=== PATIENT | female | born 2000 | race Caucasian/White ===

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

== ENCOUNTER 2018-08-29 10:53 | Emergency (ER) | payer BC, OTHER ==
[~2018-08-29] VITALS: Ht 167.6 cm; Wt 89.2 kg
--- OUTSIDE RECORDS SUMMARY | ~2018-08-29 | XMS | Clinical Summary ---
Demographics + + + | Address | [address] | | | [place] [address] | + + + | Home Phone | | + + + | Preferred Language | Unknown | + + + | Marital Status | Single | + + + | Confucianism Affiliation | 1041 | + + + | Race | Unknown | + + + | Ethnic Group | Unknown | + + + Author + + + | Author | [facility] | + + + | Organization | [facility] | + + + | Address | Unknown | + + + | Phone | Unavailable | + + + Support + + + + + | Name | Relationship | Address | Phone | + + + + + | Donald Lobo | LILI | [address] | | | | | [place] [address] | | + + + + + Care Team Providers + +------+ + | Care Corporate Risk Analyst Name | Role | Phone | + +------+ + | Lu Crum MD | PP | | + +------+ + Allergies + + + + + + | Active Allergy | Reactions | Severity | Noted | Comments | | | | | Date | | + + + + + + | Amoxicillin | Hives | High | 06/22/19 | | | | | | 14 | | + + + + + + Current Medications + + +--------+---------+------+------+-------+ | Prescription | Sig. | Disp. | Refills | Star | End | Statu | | | | | | t | Date | s | | | | | | Date | | | + + +--------+---------+------+------+-------+ | ibuprofen (MOTRIN) | | | | 02/0 | | Activ | | 600 MG tablet | | | | 09/15 | | e | | | | | | 17 | | | + + +--------+---------+------+------+-------+ | Vit-Fe | Take 1 tablet by | 30 | 0 | 06/2 | | Activ | | Fumarate-FA | mouth daily. | tablet | | 20 | | e | | ( PLUS | | | | 17 | | | | VITAMIN) 27-1 MG | | | | | | | | tablet | | | | | | | + + +--------+---------+------+------+-------+ Active Problems No known active problems Social History + +-------+ +--------+------+ | Tobacco Use | Types | Packs/Day | Years | Date | | | | | Used | | + +-------+ +--------+------+ | Never Smoker | | | | | + +-------+ +--------+------+ + +---+---+---+ | Smokeless Tobacco: | | | | | Never Used | | | | + +---+---+---+ + + +---------+ + | Alcohol Use | Drinks/We | oz/Week | Comments | | | ek | | | + + +---------+ + | No | | | | + + +---------+ + + + + | Sex Assigned at | Date Recorded | | | | + + + | Not on file | | + + + Last Filed Vital Signs + + + + | Vital Sign | Reading | Time Taken | + + + + | Blood Pressure | 130/61 | 11/21/2016 11:54 AM PDT | + + + + | Pulse | 65 | 11/21/2016 11:54 AM PDT | + + + + | Temperature | 36.8 C (98.3 F) | 11/21/2016 11:54 AM PDT | + + + + | Respiratory Rate | 16 | 11/21/2016 11:54 AM PDT | + + + + | Oxygen Saturation | 98% | 11/21/2016 11:54 AM PDT | + + + + | Inhaled Oxygen | - | - | | Concentration | | | + + + + | Weight | 95.3 kg (210 lb 1.6 | 11/21/2016 10:22 AM PDT | | | oz) | | + + + + | Height | 167.6 cm (5' 6") | 07/03/2016 1:12 PM PST | + + + + | Body Mass Index | 33.91 | 11/21/2016 10:22 AM PDT | + + + + Plan of Treatment + + + + + | Health Maintenance | Due Date | Last Done | Comments | + + + + + | Well Child Check | | | | | | 1 | | | + + + + + | Vaccine: HPV (1 - | | | | | Female 3-dose | 3 | | | | series) | | | | + + + + + | Vaccine: | | | | | Dtap/Tdap/Td (1 - | 7 | | | | Tdap) | | | | + + + + + | Vaccine: Influenza | | | | | (#1) | 8 | | | + + + + + Results Not on filefrom Last 3 Months Insurance + +--------+ +------+-------+ + | Payer | Benefi | Subscriber | Type | Phone | Address | | | t Plan | ID | | | | | | / | | | | | | | Group | | | | | + +--------+ +------+-------+ + | PREMERA | PREMER | [id number] | | | [address] [address] | | | A BLUE | 5 | | | [place] | | | CARD | | | | [phone] | + +--------+ +------+-------+ + | MEDICAID | MEDICA | [id number] | | | [address] | | | ID | | | | [place] | | | [place] | | | | [phone] | + +--------+ +------+-------+ + + +--------+ +--------+ + + | Guarantor Name | Accoun | Relation to | Date | Phone | Billing Address | | | t Type | Patient | of | | | | | | | | | | + +--------+ +--------+ + + | LINDSAY LOBO L | Person | Self | [birth year] | Home: | [address] | | | [place] | | 1999 | [phone] | [place] | | | [place] | | | [phone] | [phone] | + +--------+ +--------+ + +
--- OUTSIDE RECORDS SUMMARY | ~2018-08-29 | XMS | Clinical Summary ---
Demographics + + + | Address | [address] | | | [place] [address] | + + + | Home Phone | | + + + | Preferred Language | Unknown | + + + | Marital Status | Single | + + + | Mormonism Affiliation | 1041 | + + + | Race | Unknown | + + + | Ethnic Group | Unknown | + + + Author + + + | Author | [facility] | + + + | Organization | [facility] | + + + | Address | Unknown | + + + | Phone | Unavailable | + + + Support + + + + + | Name | Relationship | Address | Phone | + + + + + | Donald Lobo | LILI | [address] | | | | | [place] [address] | | + + + + + Care Team Providers + +------+ + | Care Marketing Project Manager Name | Role | Phone | [...] +------+-------+ + | PREMERA | PREMER | [id number] | | | [address] [address] | | | A BLUE | 5 | | | [place] | | | CARD | | | | [address] | + +--------+ +------+-------+ + | MEDICAID | MEDICA | [id number] | | | [address] | | | ID | | | | [place] | | | [place] | | | | [address] | + +--------+ +------+-------+ + + +--------+ [...] | | rhina/Alin | | 1999 | [phone] | [place] | | | [place] | | | [phone] | [address] | + +--------+ +--------+ + +
[~2018-08-29 10:53] MED LIST: NORCO 5-325 TA1 EACH PO; TRI-LO-ESTARYL1 EACH PO
[2018-08-29] MEDS ORDERED: ONDANSETRON ODT8 MG PO (11:18)
[2018-08-29] MEDS ORDERED: PROMETHAZINE HC25 M1 PO (13:01)
== END 2018-08-29 13:13 | disposition home or self-care (01) ==
LOC: ED 10:53
DX: R19.7 Diarrhea, unspecified (principal); R11.2 Nausea with vomiting, unspecified; G43.909 Migraine, unspecified, not intractable, without status migrainosus; Z88.5 Allergy status to narcotic agent; Z88.0 Allergy status to penicillin; Z79.899 Other long term (current) drug therapy
CPT/HCPCS: 81001; 99284

== ENCOUNTER 2019-10-15 19:37 | Emergency (ER) | payer BC, OTHER ==
[~2019-10-15] VITALS: Ht 167.6 cm; Wt 90.7 kg
--- OUTSIDE RECORDS SUMMARY | ~2019-10-15 | XMS | Encounter Summary ---
Demographics + + + | Address | [address] | | | [place] [address] | + + + | Home Phone | | + + + | Preferred Language | Unknown | + + + | Marital Status | Single | + + + | Shinto Affiliation | 1041 | + + + | Race | Unknown | + + + | Ethnic Group | Unknown | + + + Author + + + | Author | [facility] | | | and [place] | + + + | Organization | [facility] | | | and [place] | + + + | Address | Unknown | + + + | Phone | Unavailable | + + + Support + + +---------+ + | Name | Relationship | Address | Phone | + + +---------+ + | oDnald Lobo | ECON | Unknown | | + + +---------+ + Care Team Providers + +------+ + | Care Pulverizer Name | Role | Phone | + +------+ + PCP | Unavailable | + +------+ + Encounter Details +--------+ + + + + | Date | Type | Department | Care Team | Description | +--------+ + + + + | 06/22/ | Emergency | [facility] | John Paul Rooney | Vaginal foreign body | | 2013 | | [facility]ICAL [facility]ENTER | MD [place]any [address] | | | | | EMERGENCY [place]OVELY | [place], [place] | | | | | [address] | [address] | | | | | [place] | | | | | | [address] | | | | | | [phone] | | | +--------+ + + + + Social History + +-------+ +--------+------+ | Tobacco Use | Types | Packs/Day | Years | Date | | | | | Used | | + +-------+ +--------+------+ | Never Assessed | | | | | + +-------+ +--------+------+ + + + | Sex Assigned at | Date Recorded | | | | + + + | Not on file | | + + + + + + + | Job Start Date | Occupation | Industry | + + + + | Not on file | Not on file | Not on file | + + + + + + + + | Travel History | Travel Start | Travel End | + + + + + + | No recent travel history available. | + + documented as of this encounter Plan of Treatment Not on filedocumented as of this encounter Visit Diagnoses + + | Diagnosis | + + | Vaginal foreign body Foreign body in vulva and vagina | + + documented in this encounter"
--- OUTSIDE RECORDS SUMMARY | ~2019-10-15 | XMS | Clinical Summary ---
Demographics + + + | Address | [address] | | | [place] [address] | + + + | Home Phone | | + + + | Preferred Language | Unknown | + + + | Marital Status | Single | + + + | Jainism Affiliation | 1041 | + + + | Race | Unknown | + + + | Ethnic Group | Unknown | + + + Author + + + | Author | [facility] (Historical as of | | | 01-12-19) | + + + | Organization | [facility] (Historical as of | | | 01-12-19) | + + + | Address | Unknown | + + + | Phone | Unavailable | + + + Support + + + + + | Name | Relationship | Address | Phone | + + + + + | Donald Lobo | LILI | [address] | | | | | [place] [address] | | + + + + + Care Team Providers + +------+ + | Care Utility Tractor Operator Name | Role | Phone | + [...] 600 MG tablet | | | | /20 | | e | | | | | | 17 | | | + + +--------+---------+------+------+-------+ | Vit-Fe | Take 1 tablet by | 30 | 0 | 06/2 | | Activ | | Fumarate-FA | mouth daily. | tablet | | 6/20 | | e | | ( PLUS [...] | + + + + + | Cervical Cancer | | | | | Screening (Pap) | 9 | | | + + + + + | Vaccine: Influenza | | | | | (Season Ended) | 0 | | | + + + + [...] +------+-------+ + | PREMERA | PREMER | [id number] | | | [address] [address] | | | A BLUE | 5 | | | [place], [place] | | | CARD | | | | [address] | + +--------+ +------+-------+ + | MEDICAID | MEDICA | [id number] | | | [address] | | | ID | | | | [place] | | | [place] | | | | [address] | + +--------+ +------+-------+ + + +--------+ +--------+ + + | Guarantor Name | Accoun | Relation to | Date | Phone | Billing Address | | | t Type | Patient | of | | | | | | | | | | + +--------+ +--------+ + + | LINDSAY LOBO | Person | Self | [birth year] | Home: | [address] | | | al/Fam | | 1999 | [phone] | [place] | | | [place] | | | 1886 | [address] | + +--------+ +--------+ + +
--- OUTSIDE RECORDS SUMMARY | ~2019-10-15 | XMS | Encounter Summary ---
Demographics + + + | Address | [address] | | | [place] [address] | + + + | Home Phone | | + + + | Preferred Language | Unknown | + + + | Marital Status | Single | + + + | Yazidism Affiliation | 1041 | + + + | Race | Unknown | + + + | Ethnic Group | Unknown | + + + Author + + + | Author | [facility] | | | and [place] | + + + | Organization | [facility] | | | and [place] | + + + | Address | Unknown | + + + | Phone | Unavailable | + + + Support + + +---------+ + | Name | Relationship | Address | Phone | + + +---------+ + | Donald Lobo | ECON | Unknown | | + + +---------+ + Care Team Providers + +------+ + | Care Correspondence Clerk Name | Role | Phone | + +------+ + PCP | Unavailable | + +------+ + Encounter Details +--------+ + + + + | Date | Type | Department | Care Team | Description | +--------+ + + + + | 06/22/ | Emergency | [facility] | John Paul Rooney | Vaginal foreign body | | 2013 | | MEDICAL CENTER | MD [address] | | | | | EMERGENCY LOVELY | [place], [place] | | | | | [address] | [address] | | | | | [place] | | | | | | [address] | | | | | | [phone] | | | +--------+ + + + [...]
--- OUTSIDE RECORDS SUMMARY | ~2019-10-15 | XMS | Encounter Summary ---
Demographics + + + | Address | [address] | | | [place] [address] | + + + | Home Phone | | + + + | Preferred Language | Unknown | + + + | Marital Status | Single | + + + | Muslim Affiliation | 1041 | + + + | Race | Unknown | + + + | Ethnic Group | Unknown | + + + Author + + + | Author | [facility] | | | and [place] | + + + | Organization | [facility] | | | and [...] Team Providers + +------+ + | Care Traveling Construction Superintendent Name | Role | Phone | + +------+ + PCP | Unavailable | + +------+ + Encounter Details +--------+ + + + + | Date | Type | Department | Care Team | Description | +--------+ + + + + | 07/03/ | Emergency | [facility] | Meet Posada, | Dysuria; in | | 2017 | | [facility] | PA-C [address] | first trimester | | | | EMERGENCY LOVELY | Emergency | | | | | [address] | Department | | | | | [place], [place] | [place] [address] | | | | | [address] | [phone] | | | | | [phone] | | | +--------+ + + + [...] + + documented as of this encounter Last Filed Vital Signs + + + + + | Vital Sign | Reading | Time Taken | Comments | + + + + + | Blood Pressure | 125/60 | 07/03/2016 2:40 PM | | | | | PST | | + + + + + | Pulse | 77 | 07/03/2016 2:40 PM | | | | | PST | | + + + + + | Temperature | 37.1 C (98.7 F) | 07/03/2016 2:40 PM | | | | | PST | | + + + + + | Respiratory Rate | 16 | 07/03/2016 2:40 PM | | | | | PST | | + + + + + | Oxygen Saturation | - | - | | + + + + + | Inhaled Oxygen | - | - | | | Concentration | | | | + + + + + | Weight | 97.4 kg (214 lb 11.7 | 07/03/2016 2:40 PM | | | | oz) | PST | | + + + + + | Height | 167.6 cm (5' 6") | 07/03/2016 2:40 PM | | | | | PST | | + + + + + | Body Mass Index | 34.66 | 07/03/2016 2:40 PM | | | | | PST | | + + + + + documented in this encounter Medications at Time of Discharge + +-----+ +---------+ + + | Medication | Sig | Dispensed | Refills | Start | End Date | | | | | | Date | | + +-----+ +---------+ + + | ibuprofen | | | 0 | 07/02/19 | | | (NADER AVINA) 600 | | | | 17 | | | MG tablet | | | | | | + +-----+ +---------+ + + documented as of this encounter Plan of Treatment Not on filedocumented as of this encounter Procedures + +--------+ + + + | Procedure Name | Priori | Date/Time | Associated Diagnosis | Comments | | | ty | | | | + +--------+ + + + | URINALYSIS, REFLEX | Routin | 07/03/2016 | | Results for this | | MICROSCOPIC AND/OR | e | 1:51 PM | | procedure are in the | | CULTURE | | PST | | results section. | + +--------+ + + + | URINALYSIS, | Routin | 07/03/2016 | | Results for this | | MICROSCOPIC ONLY | e | 1:51 PM | | procedure are in the | | | | PST | | results section. | + +--------+ + + + documented in this encounter Results Urinalysis, Reflex Microscopic and/or Culture (07/03/2016 1:51 PM PST) + + + + + + | Component | Value | Ref Range | Performed | Pathologist | | | | | At | Signature | + + + + + + | Color | YELLOWComment: Testing | | EXTERNAL | | | | performed at [facility], [address] | | [address] | | | | [address], | | | | | | [place] [address] | | | | + + + + + + | Clarity | HAZYComment: Testing | | EXTERNAL | | | | performed at [facility], [address] | | [address] | | | | [address] [place], | | | | | | [place] [address] | | | | + + + + + + | Specific | 1.010Comment: Testing | 1.001 - 1.035 | EXTERNAL | | | Centre, | performed at [facility], [address] | | LAB | | | Urine | [address], | | | | | | [place] [address] | | | | + + + + + + | Leukocyte | NEGATIVEComment: Testing | | EXTERNAL | | | Esterase, | performed at [facility], [address] | | LAB | | | Urine | [address], | | | | | | [place] [address] | | | | + + + + + + | Nitrite, | NEGATIVEComment: Testing | | EXTERNAL | | | Urine | performed at [facility], [address] | | LAB | | | | [address], | | | | | | [place] [address] | | | | + + + + + + | Urobilinoge | 0.2Comment: Testing | mg/dL | EXTERNAL | | | n, Urine | performed at [facility], [address] | | LAB | | | | [address], | | | | | | [place] [address] | | | | + + + + + + | Protein, | NEGATIVEComment: Testing | mg/dL | EXTERNAL | | | Urine | performed at [facility], [address] | | LAB | | | | [address] [place], | | | | | | [place] [address] | | | | + + + + + + | pH, Urine | 6.5Comment: Testing | 4.6 - 8.0 | EXTERNAL | | | | performed at [facility], [address] | | LAB | | | | [address], | | | | | | [place] [address] | | | | + + + + + + | Blood, | LARGE (A)Comment: | | EXTERNAL | | | Urine | Testing performed at | | LAB | | | | [facility], [address], | | | | | | [place] [address] | | | | + + + + + + | Ketones | NEGATIVEComment: Testing | mg/dL | EXTERNAL | | | | performed at [facility], [address] | | LAB | | | | [address], | | | | | | [place] [address] | | | | + + + + + + | Bilirubin, | NEGATIVEComment: Testing | | EXTERNAL | | | Urine | performed at [facility], [address] | | LAB | | | | [address], | | | | | | [place] [address] | | | | + + + + + + | Glucose, | NEGATIVEComment: Testing | mg/dL | EXTERNAL | | | Urine | performed at [facility], [address] | | LAB | | | | [address] [place], | | | | | | [place] [address] | | | | + + + + + + + + | Specimen | + + | Urine specimen | | (specimen) | + + + +---------+ + + | Performing | Address | City/State/Zipcode | Phone Number | | Organization | | | | + +---------+ + + | EXTERNAL LAB | | | | + +---------+ + + Urinalysis, Microscopic Only (07/03/2016 1:51 PM PST) + + + + + + | Component | Value | Ref Range | Performed | Pathologist | | | | | At | Signature | + + + + + + | WBC, UA | 1-5Comment: Testing | 0 - 5 /hpf | EXTERNAL | | | | performed at [facility], [address] | | LAB | | | | [address] [place], | | | | | | [place] [address] | | | | + + + + + + | RBC, UA | 0-2Comment: Testing | 0 - 5 /hpf | EXTERNAL | | | | performed at [facility], [address] | | LAB | | | | [address], | | | | | | [place] [address] | | | | + + + + + + | Epithelial | 26-50Comment: Testing | /lpf | EXTERNAL | | | Cells | performed at [facility], [address] | | LAB | | | | [address], | | | | | | [place] [address] | | | | + + + + + + | Bacteria, | TRACE (A)Comment: | | EXTERNAL | | | UA | Testing performed at | | LAB | | | | [facility], [address], | | | | | | [place] [address] | | | | + + + + + + + + | Specimen | + + | | + + + +---------+ + + | Performing | Address | City/State/Zipcode | Phone Number | | Organization | | | | + +---------+ + + | EXTERNAL LAB | | | | + +---------+ + + documented in this encounter Visit Diagnoses + + | Diagnosis | + + | Dysuria | + + | in first trimester Unspecified type of , unspecified as to | | completion or legality, without mention of complication | + + documented in this encounter
--- OUTSIDE RECORDS SUMMARY | ~2019-10-15 | XMS | Clinical Summary ---
Demographics + + + | Address | [address] | | | [place] [address] | + + + | Home Phone | | + + + | Preferred Language | Unknown | + + + | Marital Status | Single | + + + | Restorationist Affiliation | 1041 | + + + | Race | Unknown | + + + | Ethnic Group | Unknown | + + + Author + + + | Author | [facility] (Historical as of | | | 01-12-19) | + + + | Organization | [facility] (Historical as of | | | 01-12-19) | + + + | Address | Unknown | + + + | Phone | Unavailable | + + + Support + + + + + | Name | Relationship | Address | Phone | + + + + + | Donlad Lobo | LILI | [address] | | | | | [place] [address] | | + + + + + Care Team Providers + +------+ + | Care Senior Java Data Architect Name | Role | Phone | + [...] +------+-------+ + | PREMERA | PREMER | [id number] | | | [address] [address] | | | A BLUE | 5 | | | [place], [place] | | | CARD | | | | [address] | + +--------+ +------+-------+ + | MEDICAID | MEDICA | [id number] | | | [address] | | | ID | | | | [place] | | | [place] | | | | [address] | + +--------+ +------+-------+ + + +--------+ [...] | | al/Fam | | 1999 | [phone] | [place] | | | [place] | | | 1886 | [address] | + +--------+ +--------+ + +
--- OUTSIDE RECORDS SUMMARY | ~2019-10-15 | XMS | Encounter Summary ---
Demographics + + + | Address | [address] | | | [place] [address] | + + + | Home Phone | | + + + | Preferred Language | Unknown | + + + | Marital Status | Single | + + + | Congregation Affiliation | 1041 | + + + | Race | Unknown | + + + | Ethnic Group | Unknown | + + + Author + + + | Author | [facility] | | | and [place] | + + + | Organization | [facility] | | | [...] Team Providers + +------+ + | Care Social Worker Clinical Name | Role | Phone | + +------+ + | Lu Crum MD | PCP | | + +------+ + Encounter Details +--------+ + + + + | Date | Type | Department | Care Team | Description | +--------+ + + + + | 11/21/ | Orders Only | [facility] | Dar Recinos | | | 2017 | | [address] | [address] | | | | | [address] | [address] | | | | | [place], [place] | [place], [place] | | | | | [address] | [address] | | | | | [phone] | [phone] | | | | | | | | +--------+ + + + [...] filedocumented as of this encounter Visit Diagnoses Not on filedocumented in this encounter"
--- OUTSIDE RECORDS SUMMARY | ~2019-10-15 | XMS | Encounter Summary ---
Demographics + + + | Address | [address] | | | [place] [address] | + + + | Home Phone | | + + + | Preferred Language | Unknown | + + + | Marital Status | Single | + + + | Orthodoxy Affiliation | 1041 | + + + | Race | Unknown | + + + | Ethnic Group | Unknown | + + + Author + + + | Author | [facility] | | | and [place] | + + + | Organization | [facility] | | | [...] Team Providers + +------+ + | Care Adjunct Faculty For Medical Terminology Name | Role | Phone | + +------+ + PCP | Unavailable | + +------+ + Encounter Details +--------+ + + + + | Date | Type | Department | Care Team | Description | +--------+ + + + + | 11/21/ | Emergency | [facility] | Dar Recinos | Pelvic pain in | | 2017 | | [facility] | [address] | | | | | EMERGENCY [place] | [address] | | | | | [address] | [place] | | | | | [place] | [address] | | | | | [address] | [phone] | | | | | [phone] | | | +--------+ + + + [...] Pressure | 130/61 | 11/21/2016 11:54 AM | | | | | PDT | | + + + + + | Pulse | 65 | 11/21/2016 11:54 AM | | | | | PDT | | + + + + + | Temperature | 36.8 C (98.3 F) | 11/21/2016 11:54 AM | | | | | PDT | | + + + + + | Respiratory Rate | 16 | 11/21/2016 11:54 AM | | | | | PDT | | + + + + + | Oxygen Saturation | - | - | | + + + + + | Inhaled Oxygen | - | - | | | Concentration | | | | + + + + + | Weight | 95.3 kg (210 lb 1.6 | 11/21/2016 11:54 AM | | | | oz) | PDT | | + + + + + | Height | - | - | | + + + + + | Body Mass Index | 33.91 | 07/03/2016 2:40 PM | | | | | PST | | + + + + + documented in this encounter Medications at Time of Discharge + + + +---------+ + + | Medication | Sig | Dispensed | Refills | Start | End Date | | | | | | Date | | + + + +---------+ + + | ibuprofen | | | 0 | 07/02/19 | | | (NADER AVINA) 600 | | | | 17 | | | MG tablet | | | | | | + + + +---------+ + + | vitamin | Take 1 tablet by | 30 | 0 | 11/22/19 | | | w/ferrous | mouth daily. | tablet | | 17 | | | fumarate-folic acid | | | | | | | ( PLUS) 27-1 | | | | | | | mg tablet | | | | | | + + + +---------+ + + documented as of this encounter Plan of Treatment Not on filedocumented as of this encounter Procedures + +--------+ + + + | Procedure Name | Priori | Date/Time | Associated Diagnosis | Comments | | | ty | | | | + +--------+ + + + | HCG, SERUM, QUANT | Routin | 11/21/2016 | | Results for this | | | e | 10:37 AM | | procedure are in the | | | | PDT | | results section. | + +--------+ + + + | URINALYSIS, REFLEX | Routin | 11/21/2016 | | Results for this | | MICROSCOPIC AND/OR | e | 10:36 AM | | procedure are in the | | CULTURE | | PDT | | results section. | + +--------+ + + + | URINALYSIS, | Routin | 11/21/2016 | | Results for this | | MICROSCOPIC ONLY | e | 10:36 AM | | procedure are in the | | | | PDT | | results section. | + +--------+ + + + documented in this encounter Results HCG, Serum, Quant (11/21/2016 10:37 AM PDT) + + + + + + | Component | Value | Ref Range | Performed | Pathologist | | | | | At | Signature | + + + + + + | hCG Quant, | 1,260 (H)Comment: | mIU/mL | EXTERNAL | | | Serum | APPROX GESTATIONAL | | LAB | | | | AGE..APPROX HCG RANGE | | | | | | 0.2 - 1 WEEK . . . . . 5 | | | | | | - 501 - 2 WEEKS . . . . | | | | | | . 50 - 5002 - 3 WEEKS . | | | | | | . . . 100 - 94952 - 4 | | | | | | WEEKS . . . . 500 - | | | | | | 544786 - 5 WEEKS . . . . | | | | | | 1000 - 770648 - 6 WEEKS | | | | | | . . . 50567 - 1557286 | | | | | | - 8 WEEKS . . . 91490 | | | | | | - [id number] - 3 MONTHS . | | | | | | . . 95621 - 239410 | | | | | | Testing performed at | | | | | | [facility], [address], | | | | | | [place] [address] | | | | + + + + + + + + | Specimen | + + | Blood specimen | | (specimen) | + + + +---------+ + + | Performing | Address | City/State/Zipcode | Phone Number | | Organization | | | | + +---------+ + + | EXTERNAL LAB | | | | + +---------+ + + Urinalysis, Reflex Microscopic and/or Culture (11/21/2016 10:36 AM PDT) + + + + + + | Component | Value | Ref Range | Performed | Pathologist | | | | | At | Signature | + + + + + + | Color | YELLOW | | EXTERNAL | | | | | | LAB | | + + + + + + | Clarity | CLEAR | | EXTERNAL | | | | | | LAB | | + + + + + + | Specific | 1.015 | 1.001 - 1.035 | EXTERNAL | | | [place], | | | LAB | | | Urine | | | | | + + + + + + | Leukocyte | NEGATIVE | | EXTERNAL | | | Esterase, | | | LAB | | | Urine | | | | | + + + + + + | Nitrite, | NEGATIVE | | EXTERNAL | | | Urine | | | LAB | | + + + + + + | Urobilinoge | 0.2 | mg/dL | EXTERNAL | | | n, Urine | | | LAB | | + + + + + + | Protein, | NEGATIVE | mg/dL | EXTERNAL | | | Urine | | | LAB | | + + + + + + | pH, Urine | 6.0 | 4.6 - 8.0 | EXTERNAL | | | | | | LAB | | + + + + + + | Blood, | TRACE (A) | | EXTERNAL | | | Urine | | | LAB | | + + + + + + | Ketones | NEGATIVE | mg/dL | EXTERNAL | | | | | | LAB | | + + + + + + | Bilirubin, | NEGATIVE | | EXTERNAL | | | Urine | | | LAB | | + + + + + + | Glucose, | NEGATIVEComment: Testing | mg/dL | EXTERNAL | | | Urine | performed at [facility], [address] | | LAB | | | | [address], | | | | | | [place] [address] | | | | + + + [...] + +---------+ + + Urinalysis, Microscopic Only (11/21/2016 10:36 AM PDT) + + + + + + | Component | Value | Ref Range | Performed | Pathologist | | | | | At | Signature | + + + + + + | WBC, UA | 0-2 | 0 - 5 /hpf | EXTERNAL | | | | | | LAB | | + + + + + + | RBC, UA | 0-2 | 0 - 5 /hpf | EXTERNAL | | | | | | LAB | | + + + + + + | Epithelial | 1-5 | /lpf | EXTERNAL | | | Cells | | | LAB | | + + + + + + | Bacteria, | NONE SEENComment: | | EXTERNAL | | | UA | Testing performed at | | LAB | | | | [facility], [address], | | | | | | [place] [address] | | | | + + + [...] + | Diagnosis | + + | Pelvic pain in Other specified complication of , unspecified as to | | episode of care | + + documented in this encounter"
--- OUTSIDE RECORDS SUMMARY | ~2019-10-15 | XMS | Encounter Summary ---
Demographics + + + | Address | [address] | | | [place] [address] | + + + | Home Phone | | + + + | Preferred Language | Unknown | + + + | Marital Status | Single | + + + | Orthodox Affiliation | 1041 | + + + | Race | Unknown | + + + | Ethnic Group | Unknown | + + + Author + + + | Author | [facility] | | | and [place] | + + + | Organization | [facility] | | | [...] Team Providers + +------+ + | Care Dispatcher Tow Truck Name | Role | Phone | + [...] [address] | | | | | [place], [place] | [place], [place] | | | | | [address] | [address] | | | | | [phone] | [phone] | | | | | | | [...]
--- OUTSIDE RECORDS SUMMARY | ~2019-10-15 | XMS | Encounter Summary ---
Demographics + + + | Address | [address] | | | [place] [address] | + + + | Home Phone | | + + + | Preferred Language | Unknown | + + + | Marital Status | Single | + + + | Scientologist Affiliation | 1041 | + + + | Race | Unknown | + + + | Ethnic Group | Unknown | + + + Author + + + | Author | [facility] | | | and [place] | + + + | Organization | [facility] | | | and [...] Providers + +------+ + | Care Senior Paralegal Name | Role | Phone | + +------+ + | Lu Crum MD | PCP | | + +------+ + Encounter Details +--------+ + + + + | Date | Type | Department | Care Team | Description | +--------+ + + + + | 07/03/ | Orders Only | [facility] | Conversion | | | 2016 | | CONVERSION DEP [address] | Transaction, | | | | | [address] | Provider Unknown | | | | | [place] | [phone] | | | | | [address] | | | | | | [phone] | | | +--------+ + + + [...]
--- OUTSIDE RECORDS SUMMARY | ~2019-10-15 | XMS | Encounter Summary ---
Demographics + + + | Address | [address] | | | [place] [address] | + + + | Home Phone | | + + + | Preferred Language | Unknown | + + + | Marital Status | Single | + + + | Lutheran Affiliation | 1041 | + + + | Race | Unknown | + + + | Ethnic Group | Unknown | + + + Author + + + | Author | [facility] | | | and [place] | + + + | Organization | [facility] | | | [...] Team Providers + +------+ + | Care Loan Manager Name | Role | Phone | + +------+ + PCP | Unavailable | + +------+ + Encounter Details +--------+ + + + + | Date | Type | Department | Care Team | Description | +--------+ + + + + | 03/12/ | Hospital | [facility] | Manuel Ford MD | Single liveborn, | | 1999 - | Encounter | [facility] | [address] | born in hospital, | | | | [address] | [address] [place], [place] | delivered by | | 03/14/ | | [place], [place] | [address] | delivery | | 1999 | | [address] | | | | | | [phone] | | | +--------+ + + + [...] + | Diagnosis | + + | Single liveborn, born in hospital, delivered by delivery | + + documented in this encounter"
--- OUTSIDE RECORDS SUMMARY | ~2019-10-15 | XMS | Encounter Summary ---
Demographics + + + | Address | [address] | | | [place] [address] | + + + | Home Phone | | + + + | Preferred Language | Unknown | + + + | Marital Status | Single | + + + | Mosque Affiliation | 1041 | + + + | Race | Unknown | + + + | Ethnic Group | Unknown | + + + Author + + + | Author | [facility] | | | and [place] | + + + | Organization | [facility] | | | and [...] Providers + +------+ + | Care Corporate Compliance Manager Name | Role | Phone | + +------+ + PCP | Unavailable | + +------+ + Encounter Details +--------+ + + + + | Date | Type | Department | Care Team | Description | +--------+ + + + + | 11/21/ | Emergency | [facility] | Dar Recinos | Pelvic pain in | | 2017 | | [facility] | [address] | | | | | EMERGENCY [place] | [address] | | | | | [address] | [place] | | | | | [place] | [address] | | | | | [address] | [phone] | | | | | [phone] | | | +--------+ + + + [...] | | . . . 100 - 43390 - 4 | | | | | | WEEKS . . . . 500 - | | | | | | 949324 - 5 WEEKS . . . . | | | | | | 1000 - 337585 - 6 WEEKS | | | | | | . . . 72801 - [id number] | | | | | | - 8 WEEKS . . . [address] | | | | | | - 7327209 - 3 MONTHS . | | | | | | . . 80466 - 731635 | | | | | | Testing performed at | | | | | | [facility], [address], | | | | | | [place] [address] | | | | + + + [...] - 1.035 | EXTERNAL | | | [place], | | | LAB | | | [...] | | | Urine | performed at [facility], [address] | | LAB | | | | [address], | | | | | | [place] [address] | | | | + + + [...] | | LAB | | | | [facility], [address], | | | | | | [place] [address] | | | | + + + [...]
--- OUTSIDE RECORDS SUMMARY | ~2019-10-15 | XMS | Clinical Summary ---
Demographics + + + | Address | [address] | | | [place] [address] | + + + | Home Phone | | + + + | Preferred Language | Unknown | + + + | Marital Status | Single | + + + | Amish Affiliation | 1041 | + + + | Race | Unknown | + + + | Ethnic Group | Unknown | + + + Author + + + | Author | [facility] | | | and [place] | + + + | Organization | [facility] | | [...] Team Providers + +------+ + | Care Merchandise Coordinator Name | Role | Phone | + +------+ + | Lu Crum MD | PCP | | + +------+ + Allergies + + + + + + | Active Allergy | Reactions | Severity | Noted | Comments | | | | | Date | | + + + + + + | Amoxicillin | Hives | High | 06/22/19 | | | | | | 14 | | + + + + + + Medications + + + +---------+------+------+-------+ | Medication | Sig | Dispensed | Refills | Star | End | Statu | | | | | | t | Date | s | | | | | | Date | | | + + + +---------+------+------+-------+ | ibuprofen | | | 0 | 02/0 | | Activ | | (ADVILMOTRIN) 600 | | | | 4/20 | | e | | MG tablet | | | | 17 | | | + + + +---------+------+------+-------+ | vitamin | Take 1 tablet by | 30 | 0 | 06/2 | | Activ | | w/ferrous | mouth daily. | tablet | | 6/20 | | e | | fumarate-folic acid | | | | 17 | | | | ( PLUS) 27-1 | | | | | | | | mg tablet | | | | | | | + + + +---------+------+------+-------+ Active Problems Not on file Social History + +-------+ +--------+------+ | Tobacco [...] recent travel history available. | + + Last Filed Vital Signs + [...] | | + + + + + Plan of Treatment + + + + + | Health Maintenance | Due Date | Last Done | Comments | + + + + + | Well Child Check | | | | | | 1 | | | + + + + + | Vaccine: | | | | | Dtap/Tdap/Td (1 - | 9 | | | | Tdap) | | | | + + + + + | Vaccine: HPV (1 - | | | | | Female 2-dose | 9 | | | | series) | | [...]
--- OUTSIDE RECORDS SUMMARY | ~2019-10-15 | XMS | Encounter Summary ---
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 [address] | in first trimester | | | | [facility] | [place], [place] | | | | | [address] | [address] | | | | | [place] | | | | | | [address] | | | | | | [phone] | | | +--------+ + + + [...] + + + | Blood Pressure | 121/57 | 06/01/2016 4:41 PM | | | | | PST | | + + + + + | Pulse | 95 | 06/01/2016 4:41 PM | | | | | PST | | + + + + + | Temperature | 37.1 C (98.7 F) | 06/01/2016 4:41 PM | | | | | PST | | + + + + + | Respiratory Rate | 18 | 06/01/2016 4:41 PM | | | | | PST | | + + + + + | Oxygen Saturation | - | - | | + + + + + | Inhaled Oxygen | - | - | | | Concentration | | | | + + + + + | Weight | 97.4 kg (214 lb 11.7 | 06/01/2016 4:41 PM | | | | oz) | PST | | + + + + + | Height | - | - | | + + + + + | Body Mass Index | - | - | | + + + + + documented in this encounter Plan of Treatment Not on filedocumented as of this encounter Procedures + +--------+ + + + | Procedure Name | Priori | Date/Time | Associated Diagnosis | Comments | | | ty | | | | + +--------+ + + + | US OB TRANSVAGINAL | Routin | 06/01/2016 | | Results for this | | | e | 4:32 PM | | procedure are in the | | | | PST | | results section. | + +--------+ + + + | EXTERNAL LAB: CBC | Routin | 06/01/2016 | | Results for this | | | e | 3:44 PM | | procedure are in the | | | | PST | | results section. | + +--------+ + + + | HCG, SERUM, QUANT | Routin | 06/01/2016 | | Results for this | | | e | 3:44 PM | | procedure are in the | | | | PST | | results section. | + +--------+ + + + | URINALYSIS, REFLEX | Routin | 06/01/2016 | | Results for this | | MICROSCOPIC AND/OR | e | 3:17 PM | | procedure are in the | | CULTURE | | PST | | results section. | + +--------+ + + + | HCG, URINE, QUAL | Routin | 06/01/2016 | | Results for this | | | e | 3:17 PM | | procedure are in the | | | | PST | | results section. | + +--------+ + + + documented in this encounter Results US OB Transvaginal (06/01/2016 4:32 PM PST) + + | Specimen | + + | | + + + + + | Impressions | Performed At | + + + | 1. There is a live single intrauterine with calculated | | | gestational age of 7 weeks and 4 days with estimated due date of | | | 01/14/2017. 2. Potential small subchorionic hemorrhage. | | | | | + + + + + + | Narrative | Performed At | + + + | [facility] 1998 OB ENDOVAGINAL 06/01/2016 4:32 PM | | | INDICATION: Vaginal bleeding COMPARISON: None TECHNIQUE: | | | Obstetrical endovaginal pelvic ultrasound, grayscale and color Doppler | | | evaluation performed FINDINGS: The uterus measures 8.2 x 7.5 x | | | 4.8 cm. There is demonstration of a yolk sac measuring 3 mm in | | | diameter. The crown-rump length measures 1.4 cm. There is | | | demonstration of a heart rate measuring 146 bpm. Adjacent to the | | | gestational sac, there is a hypoechoic region measuring 0.8 x 1.7 x | | | 0.9 cm with no internal color Doppler flow. There is no evidence of | | | free fluid in the pelvis. The right ovary is not well seen and | | | measures approximately 1.9 x 2.3 x 1.9 cm. The left ovary measures 3.5 | | | x 1.9 cm. | | + + + + + | Procedure Note | + + | Blaise Yoon - 01/09/2019 9:36 PM PDT [facility]1998US OB | | ENDOVAGIN06/01/2016 4:32 PM INDICATION: Vaginal bleeding COMPARISON: None TECHNIQUE: | | Obstetrical endovaginal pelvic ultrasound, grayscale and color Doppler evaluation | | performed FINDINGS: The uterus measures 8.2 x 7.5 x 4.8 cm. There is demonstration of a | | yolk sac measuring 3 mm in diameter. The crown-rump length measures 1.4 cm. There is | | demonstration of a heart rate measuring 146 bpm. Adjacent to the gestational sac, | | there is a hypoechoic region measuring 0.8 x 1.7 x 0.9 cm with no internal color Doppler | | flow. There is no evidence of free fluid in the pelvis. The right ovary is not well | | seen and measures approximately 1.9 x 2.3 x 1.9 cm. The left ovary measures 3.5 x 1.9 | | cm. IMPRESSION: 1. There is a live single intrauterine with calculated | | gestational age of 7 weeks and 4 days with estimated due date of 01/14/2017.2. Potential | | small subchorionic hemorrhage. Electronically signed by Calvin Arzola MD on | | 06/01/2016 4:47 PM | |cm. The left ovary measures 3.5 x | | 1.9 cm. | | | |IMPRESSION: | |1. There is a live single intrauterine with calculated gestational age of 7 week s and 4 days with estimated due date of 01/14/2017. | |2. Potential small subchorionic hemorrhage. | | | | | + + External Lab: CBC (06/01/2016 3:44 PM PST) + + + + + + | Component | Value | Ref Range | Performed | Pathologist | | | | | At | Signature | + + + + + + | WBC | 8.91Comment: Testing | 3.80 - 11.00 | EXTERNAL | | | | performed at [facility], [address] | [address] | LAB | | | | [address], | | | | | | [place] [address] | | | | + + + + + + | Red Blood | 4.92Comment: Testing | 3.70 - 5.10 | EXTERNAL | | | Cells | performed at [facility], [address] | M/uL | LAB | | | Counted | [address], | | | | | | [place] [address] | | | | + + + + + + | Hemoglobin | 14.0Comment: Testing | 11.3 - 15.5 | EXTERNAL | | | | performed at [facility], [address] | g/dL | LAB | | | | [address], | | | | | | [place] [address] | | | | + + + + + + | Hematocrit, | 41.3Comment: Testing | 34.0 - 46.0 % | EXTERNAL | | | POC | performed at [facility], [address] | | LAB | | | | [address], | | | | | | [place] [address] | | | | + + + + + + | MCV | 83.9Comment: Testing | 80.0 - 100.0 fl | EXTERNAL | | | | performed at [facility], [address] | | LAB | | | | [address], | | | | | | [place] [address] | | | | + + + + + + | MCH | 28.4Comment: Testing | 27.0 - 34.0 pg | EXTERNAL | | | | performed at [facility], [address] | | LAB | | | | [address], | | | | | | [place] [address] | | | | + + + + + + | MCHC | 33.8Comment: Testing | 32.0 - 35.5 | EXTERNAL | | | | performed at [facility], [address] | g/dL | LAB | | | | [address], | | | | | | [place] [address] | | | | + + + + + + | RDW-CV | 38.1Comment: Testing | 37 - 53 fl | EXTERNAL | | | | performed at [facility], [address] | | LAB | | | | [address], | | | | | | [place] [address] | | | | + + + + + + | Platelet | 241Comment: Testing | 150 - 400 K/uL | EXTERNAL | | | Count | performed at [facility], [address] | | LAB | | | Plasma | [address], | | | | | | [place] [address] | | | | + + + + + + | MPV | 8.8Comment: Testing | fl | EXTERNAL | | | | performed at [facility], [address] | | LAB | | | | [address], | | | | | | [place] [address] | | | | + + + + + + | Differentia | AUTOMATEDComment: | | EXTERNAL | | | l Type | Testing performed at | | LAB | | | | [facility], [address], | | | | | | [place] [address] | | | | + + + + + + | % Segmented | 55.40Comment: Testing | % | EXTERNAL | | | | performed at [facility], [address] | | LAB | | | Neutrophils | [address], | | | | | | [place] [address] | | | | + + + + + + | % | 35.40Comment: Testing | % | EXTERNAL | | | Lymphocytes | performed at [facility], [address] | | LAB | | | | [address], | | | | | | [place] [address] | | | | + + + + + + | % Monocytes | 7.98Comment: Testing | % | EXTERNAL | | | | performed at [facility], [address] | | LAB | | | | [address], | | | | | | [place] [address] | | | | + + + + + + | % | 0.84Comment: Testing | % | EXTERNAL | | | Eosinophils | performed at [facility], [address] | | LAB | | | | [address], | | | | | | [place] [address] | | | | + + + + + + | % Basophils | 0.38Comment: Testing | % | EXTERNAL | | | | performed at [facility], [address] | | LAB | | | | [address], | | | | | | [place] [address] | | | | + + + + + + | Absolute | 4.94Comment: Testing | 1.90 - 7.40 | EXTERNAL | | | Segmented | performed at [facility], [address] | K/uL | LAB | | | Neutrophils | [address], | | | | | | [place] [address] | | | | + + + + + + | Absolute | 3.15Comment: Testing | 1.00 - 3.90 | EXTERNAL | | | Lymphocytes | performed at [facility], [address] | K/uL | LAB | | | | [address], | | | | | | [place] [address] | | | | + + + + + + | Absolute | 0.71Comment: Testing | 0.00 - 0.80 | EXTERNAL | | | Monocytes | performed at [facility], [address] | K/uL | LAB | | | | [address], | | | | | | [place] [address] | | | | + + + + + + | Absolute | 0.08Comment: Testing | 0.00 - 0.50 | EXTERNAL | | | Eosinophils | performed at [facility], [address] | K/uL | LAB | | | | [address], | | | | | | [place] [address] | | | | + + + + + + | Absolute | 0.03Comment: Testing | 0.00 - 0.10 | EXTERNAL | | | Basophils | performed at [facility], [address] | K/uL | LAB | | | | [address], | | | | | | [place] [address] | | | | + + + + + + + + | Specimen | + + | Blood specimen | | (specimen) | + + + +---------+ + + | Performing | Address | City/State/Zipcode | Phone Number | | Organization | | | | + +---------+ + + | EXTERNAL LAB | | | | + +---------+ + + HCG, Serum, Quant (06/01/2016 3:44 PM PST) + + + + + + | Component | Value | Ref Range | Performed | Pathologist | | | | | At | Signature | + + + + + + | hCG Quant, | 72,399 (H)Comment: | mIU/mL | EXTERNAL | | [...] | | . . . 100 - 90536 - 4 | | | | | | WEEKS . . . . 500 - | | | | | | 163045 - 5 WEEKS . . . . | | | | | | 1000 - 390676 - 6 WEEKS | | | | | | . . . 13653 - 6878006 | | | | | | - 8 WEEKS . . . 10997 | | | | | | - 5922365 - 3 MONTHS . | | | | | | . . 04277 - 597924 | | | | | | Testing performed at | | | | | | [facility], [address], | | | | | | [place] [address] | | | | + + + [...] + + Urinalysis, Reflex Microscopic and/or Culture (06/01/2016 3:17 PM PST) + + + + + + | Component | Value | Ref Range | Performed | Pathologist | | | | | At | Signature | + + + + + + | Color | YELLOWComment: Testing | | EXTERNAL | | | | performed at [facility], [address] | | LAB | | | | [address], | | | | | | [place] [address] | | | | + + + + + + | Clarity | CLEARComment: Testing | | EXTERNAL | | | | performed at [facility], [address] | | LAB | | | | [address], | | | | | | [place] [address] | | | | + + + + + + | Specific | 1.010Comment: Testing | 1.001 - 1.035 | EXTERNAL | | | [place], | performed at [facility], [address] | | LAB | | | Urine | [address], | | | | | | [place] [address] | | | | + + + + + + | Leukocyte | NEGATIVEComment: Testing | | EXTERNAL | | | Esterase, | performed at [facility], [address] | | LAB | | | Urine | [address], | | | | | | [place] [address] | | | | + + + + + + | Nitrite, | NEGATIVEComment: Testing | | EXTERNAL | | | Urine | performed at [facility], [address] | | LAB | | | | [address], | | | | | | [place] [address] | | | | + + + + + + | Urobilinoge | 0.2Comment: Testing | mg/dL | EXTERNAL | | | n, Urine | performed at [facility], [address] | | LAB | | | | [address], | | | | | | [place] [address] | | | | + + + + + + | Protein, | NEGATIVEComment: Testing | mg/dL | EXTERNAL | | | Urine | performed at [facility], [address] | | LAB | | | | [address], | | | | | | [place] [address] | | | | + + + + + + | pH, Urine | 7.0Comment: Testing | 4.6 - 8.0 | EXTERNAL | | | | performed at [facility], [address] | | LAB | | | | [address], | | | | | | [place] [address] | | | | + + + + + + | Blood, | NEGATIVEComment: Testing | | EXTERNAL | | | Urine | performed at [facility], [address] | | LAB | | | | [address], | | | | | | [place] [address] | | | | + + + + + + | Ketones | NEGATIVEComment: Testing | mg/dL | EXTERNAL | | | | performed at [facility], [address] | | LAB | | | | [address], | | | | | | [place] [address] | | | | + + + + + + | Bilirubin, | NEGATIVEComment: Testing | | EXTERNAL | | | Urine | performed at [facility], [address] | | LAB | | | | [address], | | | | | | [place] [address] | | | | + + + + + + | Glucose, | NEGATIVEComment: Testing | mg/dL | EXTERNAL | | | Urine | performed at [facility], [address] | | LAB | | | | [address], | | | | | | [place] [address] | | | | + + + + + + + + | Specimen | + + | Urine specimen | | (specimen) | + + + +---------+ + + | Performing | Address | City/State/Zipcode | Phone Number | | Organization | | | | + +---------+ + + | EXTERNAL LAB | | | | + +---------+ + + , Urine, Qual (06/01/2016 3:17 PM PST) + + + + + + | Component | Value | Ref Range | Performed | Pathologist | | | | | At | Signature | + + + + + + | Preg Test, | POSITIVE (A)Comment: | | EXTERNAL | | | Ur | Testing performed at | | LAB | | | | [facility], [address], | | | | | | [place] [address] | | | | + + + [...] + | Diagnosis | + + | Threatened in first trimester Threatened , unspecified as to episode | | of care | + + documented in this encounter"
--- OUTSIDE RECORDS SUMMARY | ~2019-10-15 | XMS | Encounter Summary ---
Demographics + + + | Address | [address] | | | [place] [address] | + + + | Home Phone | | + + + | Preferred Language | Unknown | + + + | Marital Status | Single | + + + | Adventist Affiliation | 1041 | + + + | Race | Unknown | + + + | Ethnic Group | Unknown | + + + Author + + + | Author | [facility] | | | and [place] | + + + | Organization | [facility] | | [...] Team Providers + +------+ + | Care Film Cutter Name | Role | Phone | + +------+ + PCP | Unavailable | + +------+ + Encounter Details +--------+ + + + + | Date | Type | Department | Care Team | Description | +--------+ + + + + | 03/12/ | Hospital | [facility] | Manuel Ford MD | Single liveborn, | | 1999 - | Encounter | [facility] | [address] | born in hospital, | | | | [address] | [address] [place], [place] | delivered by | | 03/14/ | | [place], [place] | [address] | delivery | | 1999 | | [address] | | | | | | [phone] | | | +--------+ + + + [...]
--- OUTSIDE RECORDS SUMMARY | ~2019-10-15 | XMS | Clinical Summary ---
Demographics + + + | Address | [address] | | | [place] [address] | + + + | Home Phone | | + + + | Preferred Language | Unknown | + + + | Marital Status | Single | + + + | Nondenominational Affiliation | 1041 | + + + | Race | Unknown | + + + | Ethnic Group | Unknown | + + + Author + + + | Author | [facility] | | | and [place] | + + + | Organization | [facility] | | | [...] Team Providers + +------+ + | Care Sewer Line Repairer Name | Role | Phone | + [...]
--- OUTSIDE RECORDS SUMMARY | ~2019-10-15 | XMS | Encounter Summary ---
Demographics + + + | Address | [address] | | | [place] [address] | + + + | Home Phone | | + + + | Preferred Language | Unknown | + + + | Marital Status | Single | + + + | Baptism Affiliation | 1041 | + + + | Race | Unknown | + + + | Ethnic Group | Unknown | + + + Author + + + | Author | [facility] | | | and [place] | + + + | Organization | [facility] | | | [...] Team Providers + +------+ + | Care Food Order Expediter Name | Role | Phone | + +------+ + PCP | Unavailable | + +------+ + Encounter Details +--------+ + + + + | Date | Type | Department | Care Team | Description | +--------+ + + + + | 07/03/ | Emergency | [facility] | Meet Posada, | Dysuria; in | | 2017 | | [facility] | PA-C [address] | first trimester | | | | [facility] | Emergency | | | | | [address] | Department | | | | | [place], [place] | [place] [address] | | | | | [address] | [phone] | | | | | [phone] | | | +--------+ + + + [...] EXTERNAL | | | | performed at [facility], [address] | | LAB | | | | [address], | | | | | | [place] [address] | | | | + + + + + + | Clarity | HAZYComment: Testing | | EXTERNAL | | | | performed at [facility], [address] | | LAB | | | | [address], | | | | | | [place] [address] | | | | + + + + + + | Specific | 1.010Comment: Testing | 1.001 - 1.035 | EXTERNAL | | | [place], | performed at [facility], [address] | | LAB | | | Urine | [address], | | | | | | [place] [address] | | | | + + + + + + | Leukocyte | NEGATIVEComment: Testing | | EXTERNAL | | | Esterase, | performed at [facility], [address] | | LAB | | | Urine | [address], | | | | | | [place] [address] | | | | + + + + + + | Nitrite, | NEGATIVEComment: Testing | | EXTERNAL | | | Urine | performed at [facility], [address] | | LAB | | | | [address], | | | | | | [place] [address] | | | | + + + + + + | Urobilinoge | 0.2Comment: Testing | mg/dL | EXTERNAL | | | n, Urine | performed at [facility], [address] | | LAB | | | | [address], | | | | | | [place] [address] | | | | + + + + + + | Protein, | NEGATIVEComment: Testing | mg/dL | EXTERNAL | | | Urine | performed at [facility], [address] | | LAB | | | | [address], | | | | | | [place] [address] | | | | + + + + + + | pH, Urine | 6.5Comment: Testing | 4.6 - 8.0 | EXTERNAL | | | | performed at [facility], [address] | | LAB | | | | [address], | | | | | | [place] [address] | | | | + + + + + + | Blood, | LARGE (A)Comment: | | EXTERNAL | | | Urine | Testing performed at | | LAB | | | | [facility], [address], | | | | | | [place] [address] | | | | + + + + + + | Ketones | NEGATIVEComment: Testing | mg/dL | EXTERNAL | | | | performed at [facility], [address] | | LAB | | | | [address], | | | | | | [place] [address] | | | | + + + + + + | Bilirubin, | NEGATIVEComment: Testing | | EXTERNAL | | | Urine | performed at [facility], [address] | | LAB | | | | [address], | | | | | | [place] [address] | | | | + + + + + + | Glucose, | NEGATIVEComment: Testing | mg/dL | EXTERNAL | | | Urine | performed at [facility], [address] | | LAB | | | | [address] [place], | | | | | | [place] [address] | | | | + + + [...] EXTERNAL | | | | performed at [facility], [address] | | LAB | | | | [address], | | | | | | [place] [address] | | | | + + + + + + | RBC, UA | 0-2Comment: Testing | 0 - 5 /hpf | EXTERNAL | | | | performed at [facility], [address] | | LAB | | | | [address], | | | | | | [place] [address] | | | | + + + + + + | Epithelial | 26-50Comment: Testing | /lpf | EXTERNAL | | | Cells | performed at [facility], [address] | | LAB | | | | [address], | | | | | | [place] [address] | | | | + + + + + + | Bacteria, | TRACE (A)Comment: | | EXTERNAL | | | UA | Testing performed at | | LAB | | | | [facility], [address], | | | | | | [place] [address] | | | | + + + [...]
--- OUTSIDE RECORDS SUMMARY | ~2019-10-15 | XMS | Encounter Summary ---
Demographics + + + | Address | [address] | | | [place] [address] | + + + | Home Phone | | + + + | Preferred Language | Unknown | + + + | Marital Status | Single | + + + | Hindu Affiliation | 1041 | + + + | Race | Unknown | + + + | Ethnic Group | Unknown | + + + Author + + + | Author | [facility] | | | and [place] | + + + | Organization | [facility] | | | [...] Team Providers + +------+ + | Care Scale Tank Operator Name | Role | Phone | [...] | | | | [place] | [phone] | | | | | [address] | | | | | | [phone] | | | +--------+ + + + [...]
--- OUTSIDE RECORDS SUMMARY | ~2019-10-15 | XMS | Encounter Summary ---
Demographics + + + | Address | [address] | | | [place] [address] | + + + | Home Phone | | + + + | Preferred Language | Unknown | + + + | Marital Status | Single | + + + | Pentecostal Affiliation | 1041 | + + + | Race | Unknown | + + + | Ethnic Group | Unknown | + + + Author + + + | Author | [facility] | | | and [place] | + + + | Organization | [facility] | | | and [place] | + + + | Address | Unknown | + + + | Phone | Unavailable | + + + Support + + +---------+ + | Name | Relationship | Address | Phone | + + +---------+ + | Donadl Lobo | ECON | Unknown | | + + +---------+ + Care Team Providers + +------+ + | Care Aeronautical Engineer Name | Role | Phone | + +------+ + PCP | Unavailable | + +------+ + Encounter Details +--------+ + + + + | Date | Type | Department | Care Team | Description | +--------+ + + + + | 06/01/ | Emergency | [facility] | Rosita Han | Threatened | | 2017 | | [facility] | 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, 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[address] | in first trimester | | | | EMERG[facility]Y [facility] | [place], [place] | | | | | [address] | [address] | | | | | [place] | | | | | | [address] | | | | | | [phone] | | | +--------+ + + + [...] EXTERNAL | | | | performed at [facility], [address] | K/uL | LAB | | | | [address], | | | | | | [place] [address] | | | | + + + + + + | Red Blood | 4.92Comment: Testing | 3.70 - 5.10 | EXTERNAL | | | Cells | performed at [facility], [address] | M/uL | LAB | | | Counted | [address], | | | | | | [place] [address] | | | | + + + + + + | Hemoglobin | 14.0Comment: Testing | 11.3 - 15.5 | EXTERNAL | | | | performed at [facility], [address] | g/dL | LAB | | | | [address], | | | | | | [place] [address] | | | | + + + + + + | Hematocrit, | 41.3Comment: Testing | 34.0 - 46.0 % | EXTERNAL | | | POC | performed at [facility], [address] | | LAB | | | | [address], | | | | | | [place] [address] | | | | + + + + + + | MCV | 83.9Comment: Testing | 80.0 - 100.0 fl | EXTERNAL | | | | performed at [facility], [address] | | LAB | | | | [address], | | | | | | [place] [address] | | | | + + + + + + | MCH | 28.4Comment: Testing | 27.0 - 34.0 pg | EXTERNAL | | | | performed at [facility], [address] | | LAB | | | | [address], | | | | | | [place] [address] | | | | + + + + + + | MCHC | 33.8Comment: Testing | 32.0 - 35.5 | EXTERNAL | | | | performed at [facility], [address] | g/dL | LAB | | | | [address], | | | | | | [place] [address] | | | | + + + + + + | RDW-CV | 38.1Comment: Testing | 37 - 53 fl | EXTERNAL | | | | performed at [facility], [address] | | LAB | | | | [address], | | | | | | [place] [address] | | | | + + + + + + | Platelet | 241Comment: Testing | 150 - 400 K/uL | EXTERNAL | | | Count | performed at [facility], [address] | | LAB | | | Plasma | [address], | | | | | | [place] [address] | | | | + + + + + + | MPV | 8.8Comment: Testing | fl | EXTERNAL | | | | performed at [facility], [address] | | LAB | | | | [address], | | | | | | [place] [address] | | | | + + + + + + | Differentia | AUTOMATEDComment: | | EXTERNAL | | | l Type | Testing performed at | | LAB | | | | [facility], [address], | | | | | | [place] [address] | | | | + + + + + + | % Segmented | 55.40Comment: Testing | % | EXTERNAL | | | | performed at [facility], [address] | | LAB | | | Neutrophils | [address], | | | | | | [place] [address] | | | | + + + + + + | % | 35.40Comment: Testing | % | EXTERNAL | | | Lymphocytes | performed at [facility], [address] | | LAB | | | | [address], | | | | | | [place] [address] | | | | + + + + + + | % Monocytes | 7.98Comment: Testing | % | EXTERNAL | | | | performed at [facility], [address] | | LAB | | | | [address], | | | | | | [place] [address] | | | | + + + + + + | % | 0.84Comment: Testing | % | EXTERNAL | | | Eosinophils | performed at [facility], [address] | | LAB | | | | [address], | | | | | | [place] [address] | | | | + + + + + + | % Basophils | 0.38Comment: Testing | % | EXTERNAL | | | | performed at [facility], [address] | | LAB | | | | [address], | | | | | | [place] [address] | | | | + + + + + + | Absolute | 4.94Comment: Testing | 1.90 - 7.40 | EXTERNAL | | | Segmented | performed at [facility], [address] | K/uL | LAB | | | Neutrophils | [address], | | | | | | [place] [address] | | | | + + + + + + | Absolute | 3.15Comment: Testing | 1.00 - 3.90 | EXTERNAL | | | Lymphocytes | performed at [facility], [address] | K/uL | LAB | | | | [address], | | | | | | [place] [address] | | | | + + + + + + | Absolute | 0.71Comment: Testing | 0.00 - 0.80 | EXTERNAL | | | Monocytes | performed at [facility], [address] | K/uL | LAB | | | | [address], | | | | | | [place] [address] | | | | + + + + + + | Absolute | 0.08Comment: Testing | 0.00 - 0.50 | EXTERNAL | | | Eosinophils | performed at [facility], [address] | K/uL | LAB | | | | [address], | | | | | | [place] [address] | | | | + + + + + + | Absolute | 0.03Comment: Testing | 0.00 - 0.10 | EXTERNAL | | | Basophils | performed at [facility], [address] | K/uL | LAB | | | | [address] [place], | | | | | | [place] [address] | | | | + + + [...] | | . . . 100 - [address]180 - 4 | | | | | | WEEKS . . . . 500 - | | | | | | 364274 - 5 WEEKS . . . . | | | | | | 1000 - 797475 - 6 WEEKS | | | | | | . . . 95976 - 9359799 | | | | | | - 8 WEEKS . . . [address] | | | | | | - [id number] - 3 MONTHS . | | | | | | . . 49408 - 439367 | | | | | | Testing performed at | | | | | | [facility], [address], | | | | | | [place] [address] | | | | + + + [...] EXTERNAL | | | | performed at [facility], [address] | | LAB | | | | [address], | | | | | | [place] [address] | | | | + + + + + + | Clarity | CLEARComment: Testing | | EXTERNAL | | | | performed at [facility], [address] | | LAB | | | | [address], | | | | | | [place] [address] | | | | + + + + + + | Specific | 1.010Comment: Testing | 1.001 - 1.035 | EXTERNAL | | | [place], | performed at [facility], [address] | | LAB | | | Urine | [address], | | | | | | [place] [address] | | | | + + + + + + | Leukocyte | NEGATIVEComment: Testing | | EXTERNAL | | | Esterase, | performed at [facility], [address] | | LAB | | | Urine | [address], | | | | | | [place] [address] | | | | + + + + + + | Nitrite, | NEGATIVEComment: Testing | | EXTERNAL | | | Urine | performed at [facility], [address] | | LAB | | | | [address], | | | | | | [place] [address] | | | | + + + + + + | Urobilinoge | 0.2Comment: Testing | mg/dL | EXTERNAL | | | n, Urine | performed at [facility], [address] | | LAB | | | | [address], | | | | | | [place] [address] | | | | + + + + + + | Protein, | NEGATIVEComment: Testing | mg/dL | EXTERNAL | | | Urine | performed at [facility], [address] | | LAB | | | | [address], | | | | | | [place] [address] | | | | + + + + + + | pH, Urine | 7.0Comment: Testing | 4.6 - 8.0 | EXTERNAL | | | | performed at [facility], [address] | | LAB | | | | [address], | | | | | | [place] [address] | | | | + + + + + + | Blood, | NEGATIVEComment: Testing | | EXTERNAL | | | Urine | performed at [facility], [address] | | LAB | | | | [address], | | | | | | [place] [address] | | | | + + + + + + | Ketones | NEGATIVEComment: Testing | mg/dL | EXTERNAL | | | | performed at [facility], [address] | | LAB | | | | [address] [place], | | | | | | [place] [address] | | | | + + + + + + | Bilirubin, | NEGATIVEComment: Testing | | EXTERNAL | | | Urine | performed at [facility], [address] | | LAB | | | | [address], | | | | | | [place] [address] | | | | + + + + + + | Glucose, | NEGATIVEComment: Testing | mg/dL | EXTERNAL | | | Urine | performed at [facility], [address] | | LAB | | | | [address], | | | | | | [place] [address] | | | | + + + [...] | | LAB | | | | [facility], [address], | | | | | | [place] [address] | | | | + + + [...]
[~2019-10-15 19:37] MED LIST changes: +ONDANSETRON ODT8 MG PO; +PROMETHAZINE HC25 M1 PO
[2019-10-15] MEDS ORDERED: PRENATAL GUMMI1 EACH PO (20:21)
== END 2019-10-16 00:15 | disposition home or self-care (01) ==
LOC: ED 19:37
DX: O99.89 Other specified diseases and conditions complicating pregnancy, childbirth and the puerperium (principal); R10.2 Pelvic and perineal pain; Z3A.01 Less than 8 weeks gestation of pregnancy; Z88.0 Allergy status to penicillin; Z88.5 Allergy status to narcotic agent
CPT/HCPCS: 76801; 76817; 80053; 81001; 84702; 85025; 99284-25

== ENCOUNTER 2020-10-08 12:34 | Inpatient (IN) | payer OTHER ==
[~2020-10-08] VITALS: Ht 170.2 cm; Wt 113.4 kg
[~2020-10-08 12:34] MED LIST changes: +PRENATAL GUMMI1 EACH PO
--- NOTE | 2020-10-08 13:36 | NUR ---
RT COLLECTED A RAPID COVID 19 SWAB USING [facility] WITH NO COMPLICATIONS AT THIS TIME.
--- NOTE | 2020-10-08 17:30 | PR ---
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 Will continue position changes and increase pit as needed. FETUS A: [id number] FHR Baseline: 140 Variability: Moderate 6-25bpm Accelerations: 15X15 Decelerations: None FHR Category: Category I Presentation: Vertex Comments on Fetus A: No evidence of metabolic acidosis FETUS B: [id number] Signing Physician: Barbara Acosta MD Copies: ~ *Electronically Signed* 10/08/20 1730 BARBARA ACOSTA MD PATIENT NAME: LINDSAY SHORT PROGRESS NOTE DATE OF : 98 PHYSICIAN: BARBARA ACOSTA MD RPT #: [id number] REPORT IS CONFIDENTIAL AND NOT TO BE RELEASED WITHOUT AUTHORIZATION
--- NOTE | 2020-10-08 20:25 | PR ---
[facility] [address] [facility] [place] [address] Signed PP Progress Notes Datetime Report Generated by CPN: 10/08/2020 20:24 SUBJECTIVE: [id number] Pain: Within Normal Limits Pain Comments: pp bleeding Vital Signs: [id number] Vital Signs: Reviewed; Within Normal Limits Abdomen/Uterus: Abnormal Lochia: Abnormal Exam Comments: Fundus firm at U-2 currently. QBL thus far = 308 cc IMPRESSION/PLAN/PROCEDURES: [id number] Other Impression: pp bleeding Progress Notes: Episodes of heavy bleeding which appear to be much improved after using pitocin IV and po Cytotec. Uterus explored twice with removal of clots--1st large and 2nd small. Will continue close observation. Signing Physician: Barbara Acosta MD Copies: ~ *Electronically Signed* 10/08/202023 BARBARA ACOSTA MD PATIENT NAME: LINDSAY SHOTR PROGRESS NOTE DATE OF : 98 PHYSICIAN: BARBARA ACOSTA MD RPT #: [id number] REPORT IS CONFIDENTIAL AND NOT TO BE RELEASED WITHOUT AUTHORIZATION
--- NOTE | 2020-10-08 21:06 | NUR ---
IN TO ASSIST RN WITH POST DELIVERY LINEN CHANGE, NO FURTHER NEEDS
--- NOTE | 2020-10-09 08:21 | PR ---
[facility] [address] [facility] [place], [place] [address] Signed PP Progress Notes Datetime Report Generated by BERTO: 10/09/2020 08:21 SUBJECTIVE: [id number] Pain: Within Normal Limits Pain Comments: bleeding much improved Vital Signs: [id number] Vital Signs: Reviewed; Within Normal Limits Cardiovascular: Not Done Respiratory: Not Done Abdomen/Uterus: Abnormal Lochia: Normal Vulva/Perineum: Not Done Breasts: Not Done CVA Tenderness: Not Done Extremities: Normal Incision: Not Applicable Progress: Normal Exam Comments: Fundus firm, NT @ U-2. H/H 12/35.7, WBC 10.4, plat 123k IMPRESSION/PLAN/PROCEDURES: [id number] Impression: Normal Progression Other Impression: pp bleeding Plan: Continue Present Management Progress Notes: Her bleeding has done well overnight. Baby moving left arm some but not as mobile as right. She should be ready for D/C in am. Signing Physician: Barbara Acosta MD Copies: ~ *Electronically Signed* 10/09/20820 BARBARA ACOSTA MD PATIENT NAME: LINDSAY SHORT PROGRESS NOTE DATE OF : 98 PHYSICIAN: BARBARA ACOSTA MD RPT #: [id number] REPORT IS CONFIDENTIAL AND NOT TO BE RELEASED WITHOUT AUTHORIZATION
--- NOTE | 2020-10-10 10:40 | PR ---
[facility] [address] [facility] [place], [place] [address] Signed PP Progress Notes Datetime Report Generated by CPN: 10/10/2020 10:40 SUBJECTIVE: [id number] Pain: Within Normal Limits Pain Comments: bleeding much improved Nausea/Vomiting: Denies Bowel Movement: Yes Vital Signs: [id number] Vital Signs: Reviewed; Within Normal Limits Cardiovascular: Not Done Respiratory: Not Done Abdomen/Uterus: Normal Lochia: Normal Vulva/Perineum: Not Done Breasts: Not Done CVA Tenderness: Not Done Extremities: Normal Incision: Not Applicable Progress: Normal Exam Comments: Fundus firm, NT @ U-2. H/H 12/35.7, WBC 10.4, plat 123k IMPRESSION/PLAN/PROCEDURES: [id number] Impression: Normal Progression Other Impression: pp bleeding Plan: Discharge Procedures: None Progress Notes: Doing well, without complaint, ready to go home. Signing Physician: Augustin Sotelo MD Copies: ~ *Electronically Signed* 10/10/20 1040 AUGUSTIN SOTELO MD PATIENT NAME: LINDSAY SHORT PROGRESS NOTE DATE OF : 98 PHYSICIAN: AUGUSTIN SOTELO MD RPT #: [id number] REPORT IS CONFIDENTIAL AND NOT TO BE RELEASED WITHOUT AUTHORIZATION
== END 2020-10-10 11:35 | disposition home or self-care (01) | DRG 807 ==
LOC: FBCO 12:34 → FBC 12:55
PROVIDERS: ADMIT Obstetrics & Gynecology; ATTEND Obstetrics & Gynecology
PROC: 10E0XZZ Delivery of Products of Conception, External Approach (ICD-10-PCS; principal; 2020-10-08)
DX: O99.214 Obesity complicating childbirth (principal); Z37.0 Single live birth; O72.1 Other immediate postpartum hemorrhage; Z20.822 Contact with and (suspected) exposure to COVID-19; O66.0 Obstructed labor due to shoulder dystocia; Z3A.37 37 weeks gestation of pregnancy; O99.52 Diseases of the respiratory system complicating childbirth; E66.9 Obesity, unspecified; J45.20 Mild intermittent asthma, uncomplicated; O26.03 Excessive weight gain in pregnancy, third trimester; Z86.16 Personal history of COVID-19; Z88.5 Allergy status to narcotic agent; Z79.899 Other long term (current) drug therapy; Z88.0 Allergy status to penicillin
CPT/HCPCS: 36415; 85027; A9270; C9803; J2405; J2590; J7121; U0003

== ENCOUNTER 2024-03-11 14:08 | Inpatient (IN) | payer OTHER ==
[2024-03-12] MEDS ORDERED: CALCIUM CARBONATE 500 MG CHEW PO PRN (06:00)
[2024-03-12] MEDS ORDERED: OXYTOCIN/0.9 % SODIUM CHLORIDE 500 ML IV SCH (06:00)
[2024-03-12] MEDS ORDERED: MAGNESIUM HYDROXIDE/AL HYDROX 30 ML CUP PO PRN (06:00)
[2024-03-12] MEDS ORDERED: LACTATED RINGER'S 1,000 ML IV SCH (06:00)
[2024-03-12] MEDS ORDERED: LACTATED RINGER'S 1,000 ML IV PRN (06:15)
[2024-03-12 06:39] LABS: AMPHETAMINES, URINE NEGATIVE (NEGATIVE); BARBITURATES, URINE NEGATIVE (NEGATIVE); BENZODIAZEPINE, URINE NEGATIVE (NEGATIVE); BUPRENORPHINE, URINE NEGATIVE (NEGATIVE); CANNABINOID, URINE NEGATIVE (NEGATIVE); COCAINE, URINE NEGATIVE (NEGATIVE); ECSTASY, URINE NEGATIVE (NEGATIVE); FENTANYL, URINE NEGATIVE (NEGATIVE); METHADONE, URINE NEGATIVE (NEGATIVE); OPIATES, URINE NEGATIVE (NEGATIVE); OXYCODONE, URINE NEGATIVE (NEGATIVE); PHENCYCLIDINE, URINE NEGATIVE (NEGATIVE)
[2024-03-12 06:47] LABS: HEMATOCRIT 38.7 % (35.0-50.0); HEMOGLOBIN 13.2 g/dL (12.0-18.0); MCH 29.9 (27-36); MCHC 34.1 g/dl (30-36); MCV 87.9 fl (81-99); RBC 4.4 M/ul (4.3-5.7); RDW 15.2 (10.5-15.0)
[2024-03-12 07:20] LABS: ABO A; RH POSITIVE
[2024-03-12 07:21] LABS: ANTIBODY SCREEN NEGATIVE
[2024-03-12] MEDS ORDERED: WITCH HAZEL/GLYCERIN 1 EA PAD TOP PRN (11:15)
[2024-03-12] MEDS ORDERED: LIDOCAINE 2% VISCOUS 6 ML SYR TOP ONE (11:15)
[2024-03-12] MEDS ORDERED: ACETAMINOPHEN 325 MG TAB PO PRN (11:15)
[2024-03-12] MEDS ORDERED: IBUPROFEN 600 MG TAB PO PRN (11:15)
[2024-03-12] MEDS ORDERED: BENZOCAINE 60 ML AEROSOL TOP PRN (11:15)
[2024-03-12] MEDS ORDERED: MAGNESIUM HYDROXIDE 30 ML UDC PO PRN (11:15)
[2024-03-12] MEDS ORDERED: HYDROCORTISONE ACETATE 25 MG SUPP PR PRN (11:15)
[2024-03-13 06:00] LABS: HEMATOCRIT 35.2 % (35.0-50.0); HEMOGLOBIN 12.1 g/dL (12.0-18.0); MCH 30.3 (27-36); MCHC 34.4 g/dl (30-36); RDW 14.7 (10.5-15.0)
== END 2024-03-13 14:00 | disposition home or self-care (01) | DRG 807 ==
LOC: FBC 03-12 05:55
PROVIDERS: ADMIT Obstetrics & Gynecology; ATTEND Obstetrics & Gynecology
PROC: 10E0XZZ Delivery of Products of Conception, External Approach (ICD-10-PCS; principal; 2024-03-12)
PROC: 10907ZC Drainage of Amniotic Fluid, Therapeutic from Products of Conception, Via Natural or Artificial Opening (ICD-10-PCS; 2024-03-12)
PROC: 3E033VJ Introduction of Other Hormone into Peripheral Vein, Percutaneous Approach (ICD-10-PCS; 2024-03-12)
DX: O99.214 Obesity complicating childbirth (principal); Z37.0 Single live birth; O99.02 Anemia complicating childbirth; O99.52 Diseases of the respiratory system complicating childbirth; J45.40 Moderate persistent asthma, uncomplicated; Z3A.39 39 weeks gestation of pregnancy; Z88.0 Allergy status to penicillin; Z88.5 Allergy status to narcotic agent; Z88.1 Allergy status to other antibiotic agents; Z90.49 Acquired absence of other specified parts of digestive tract; Z90.89 Acquired absence of other organs
CPT/HCPCS: 36415; 80307; 85027; 86850; 86900; 86901; A9270